=== PATIENT | female | born 2005 | race Caucasian/White ===

== ENCOUNTER 2024-12-16 12:59 | Emergency (ER) | payer MEDICAID ==
[~2024-12-16] VITALS: Ht 170.2 cm; Wt 68.0 kg
--- NOTE | 2024-12-16 14:41 | Physician Documentation ---
History of Present Illness ~ Chief Complaint: Bite-insect Stated Complaint: FOOT PAIN Time Seen by MD: 14:26 Primary Medical Doctor: none HPI Patient is a 19-year-old female that presents to the emergency department for evaluation of bug bites with a little bit of swelling and erythema surrounding them. [place] the bug bites to her foot and ankle. Patient reports that these bug bites or consistent with mosquito bites and she frequently has a heightened response to mosquito bites. Patient is concerned because of the itching and swelling. The significant past medical history reported at this time no other concerns. Tetanus within 5 years?: Yes Medication Reconciliation Allergies: Coded Allergies: No Known Allergies (Unverified , 12/16/24) Review of Systems ROS As stated above in the HPI, otherwise all systems are reviewed and negative. Physical Exam Vital Signs: Temperature: 98.4, Source: Temporal, Heart Rate: 110, Respiratory Rate: 18, BP: 135/87, Pulse Oximetry: 99, Weight: 68.000 Oxygen Flow Rate: 0 Physical Exam VITALS: Reviewed and as above. GENERAL: Alert, no apparent distress. HEENT: Normocephalic, atraumatic, PERRL, EOMI, dry mucosa, no erythema RESPIRATORY: Lungs clear, normal breath sounds, no respiratory distress. CHEST: No accessory muscle use, no retractions CV: Regular rate, rhythm, no edema, no murmur, No: JVD GI: Soft, non-tender, bowels sounds present, no rebound, guarding, or rigidity BACK: No CVA tenderness, or swelling MUSCULOSKELETAL No deformities, no edema SKIN: Warm and dry, mild erythema and swelling noted around bug bites to the right ankle NEURO: Oriented x4, No motor or sensory deficit PSYCH: Normal mood and affect, no agitation Progress Results/Orders Results/Orders Vital Signs 12/16/24 13:10 Temp 98.4 Pulse 110 Resp 18 B/P (MAP) 135/87 Pulse Ox 99 O2 Flow Rate 0 Medical Decision Making Findings This patient who presents with rash for 2 days consistent with reaction to inflamed mosquito bites. History and exam findings not consistent with dangerous etiologies of rash such as SJS/TEN, or secondary dangerous causes such as petechial rashes from thrombocytopenia or rickettsial infections. Rash does not appear urticarial with no signs of anaphylaxis either. Plan at this time is to treat symptomatically, instruct to follow up with PCP or derm PRN. Patient given 25 mg of Benadryl prior to discharge. Patient reports she is not driving. Patient will return to the emergency department with any worsening or recurrent symptoms or any additional concerning symptoms that we discussed here today. Differential Dx:Considerations: Include: Abrasion, Allergic reaction, Anaphylaxis, Cellulitis, Contusion, Fracture, Hematoma, Insect envenomation, Laceration, Neurovascular injury, Punture wound, Retained foreign body, Urticaria, Other Departure Disposition: HOME / SELF CARE / HOMELESS Impression: Primary Impression: Insect bites Condition: Stable Additional Instructions: This patient who presents with rash for 2 days consistent with reaction to inflamed mosquito bites. History and exam findings not consistent with dangerous etiologies of rash such as SJS/TEN, or secondary dangerous causes such as petechial rashes from thrombocytopenia or rickettsial infections. Rash does not appear urticarial with no signs of anaphylaxis either. Plan at this time is to treat symptomatically, instruct to follow up with PCP or derm PRN. Patient given 25 mg of Benadryl prior to discharge. Patient reports she is not driving. Please return to the emergency department if you have any worsening or recurrent symptoms or any additional concerning symptoms that we discussed here today. Referrals: NO PRIMARY CARE PROVIDER (PCP) Education Educated: Patient Educated regarding: diagnosis, need for follow up Signature Scribe Signature: A Attestation: Scribed for Bahman Mg by ABBIE Sharma . 12/16/24 15:01 BAHMAN MG Dec 16, 2024 14:41
[2024-12-16 15:15] VITALS: BP 118/64; PULSE 66; RESP 16; TEMP 98.1; O2SAT 98
== END 2024-12-16 15:17 | disposition home or self-care (01) ==
LOC: ER 13:00
DX: S90.561A Insect bite (nonvenomous), right ankle, initial encounter (principal); W57.XXXA Bitten or stung by nonvenomous insect and other nonvenomous arthropods, initial encounter; Y93.89 Activity, other specified; Y92.89 Other specified places as the place of occurrence of the external cause; Y99.8 Other external cause status
CPT/HCPCS: 99282; Q0163